=== PATIENT | male | born 1955 | race Caucasian/White ===

== ENCOUNTER 2017-10-22 19:30 | Outpatient (CLI) | payer OTHER | END 2017-10-22 19:31 | disposition home or self-care (01) | LOC: SLEEPLAB 19:30 | PROVIDERS: ATTEND Internal Medicine | DX: G47.33 Obstructive sleep apnea (adult) (pediatric) (principal); R53.83 Other fatigue; R06.83 Snoring | CPT/HCPCS: 95810 ==